=== PATIENT | female | born 1995 | race Caucasian/White ===

== ENCOUNTER 2021-08-04 19:16 | Emergency (ER) | payer SELFPAY ==
[~2021-08-04] VITALS: Ht 154.9 cm; Wt 79.5 kg
[2021-08-04] MEDS ORDERED: ZITHROMAX 250M250 MG PO (20:55)
[2021-08-04] MEDS ORDERED: PREDNISONE20 MG PO (20:55)
[2021-08-04 20:57] VITALS: BP 115/68; PULSE 76; TEMP 98.1
== END 2021-08-04 21:03 | disposition home or self-care (01) ==
LOC: COL.ER 19:16
DX: J45.909 Unspecified asthma, uncomplicated (principal); Z86.16 Personal history of COVID-19
CPT/HCPCS: J7512

== ENCOUNTER 2021-08-18 18:36 | Inpatient (IN) | payer SELFPAY ==
[~2021-08-18] VITALS: Ht 154.9 cm; Wt 86.0 kg
[~2021-08-18 18:36] MED LIST: PREDNISONE20 MG PO; ZITHROMAX 250M250 MG PO
[2021-08-18 19:44] LABS: HEMATOCRIT 42.6 % (37.0-47.0); HEMOGLOBIN 13.8 g/dl (12.5-16.0); MEAN CELL VOLUME 86 fl (80.0-100.0); MEAN CORPUSCULAR HEMOGLOBIN 28 pg (27-31); MEAN CORPUSCULAR HGB CONC 32 g/dl (33.0-37.0); MEAN PLATELET VOLUME 11.9 fl (7.4-10.4); PLATELET COUNT 151 K/mm3 (130-400); RED BLOOD COUNT 4.98 M/mm3 (4.10-5.30)
[2021-08-18 20:05] LABS: ALANINE AMINOTRANSFERASE 25 U/L (0-55); ALBUMIN 4.4 gm/dL (3.5-5.0); ALKALINE PHOSPHATASE 53 U/L (40-150); ANION GAP 10 mmol/L (7-16); AST,SGOT 16 U/L (5-34); BILIRUBIN,TOTAL 1.3 mg/dL (0.2-1.2); BLOOD UREA NITROGEN 24 mg/dL (7-19); CALCIUM 9.8 mg/dL (8.4-10.2); CARBON DIOXIDE 19 mmol/L (22-29); CHLORIDE 109 mmol/L (98-107); CREATININE, serum 0.72 mg/dL (0.57-1.11); GLUCOSE 91 mg/dL (70-99); POTASSIUM 4.2 mmol/L (3.5-4.5); SODIUM 138 mmol/L (136-145)
[2021-08-18 20:11] LABS: TROPONIN-I < 0.010 ng/mL (0.00-0.033)
[2021-08-18 20:31] LABS: BAND 5 % (0-10); BASOPHIL 1 % (0-2); EOSINOPHIL 2 % (0-4); LYMPHOCYTE 25 % (20.0-51.0); METAMYELOCYTE 1 % (0-0); MYELOCYTE 4 % (0-0); NEUTROPHILS 54 % (42.0-75.2)
[2021-08-18 20:32] LABS: HYPOCHROMIA 1+; PLATELET ESTIMATE NORMAL (NORMAL)
[2021-08-18] MEDS ORDERED: ABILIFY 10MG TA10 MG PO (21:27)
[2021-08-18] MEDS ORDERED: PROZAC 20MG20 MG PO (21:28)
[2021-08-18] MEDS ORDERED: TOPAMAX 100MG100 M1 PO (21:28)
[2021-08-18] MEDS ORDERED: DESYREL 50MG50 MG PO (21:29)
[2021-08-18] MEDS ORDERED: PROAIR HFA0.09 MG/AC IH (21:29)
[2021-08-18] MEDS ORDERED: NORVASC2.5 MG PO (21:29)
[2021-08-18] MEDS ORDERED: PRILOSEC 20MG20 MG PO (21:29)
[2021-08-18] MEDS ORDERED: RT ADVAIR 228 DISKUS IH (21:30)
[2021-08-18 23:00] VITALS: BP 120/72; PULSE 66; TEMP 98.1
--- NOTE | 2021-08-19 01:21 | NUR ---
PATIENT TO ROOM 348. ALERT AND ORIENTED. DENIES PAIN. C/O CHEST TIGHTNESS WHEN COUGHING. PT EDUCATION ON STOOL SAMPLE AND SPUTUM SAMPLE NEED, PT IS AGREEABLE. MED RX COMPLETED, ASSESSMENTS COMPLETED. NS INFUSING TO R AC IV. 2 L O2 VIA NC. REFUSED HS DOSE OF TRAZADONE.
[2021-08-19 04:39] VITALS: BP 104/66; PULSE 74; TEMP 97.8
[2021-08-19 06:42] LABS: BASO % 0.4 % (0.0-2.0); EOS % 0.2 % (0.0-4.0); GRAN # 4.9 K/mm3 (1.4-6.5); GRAN % 87.1 % (42.2-75.2); HEMATOCRIT 37.9 % (37.0-47.0); HEMOGLOBIN 12.6 g/dl (12.5-16.0); LYMPH # 0.5 K/mm3 (1.2-3.4); LYMPH % 9.6 % (20.0-51.0); MEAN CELL VOLUME 84 fl (80.0-100.0); MEAN CORPUSCULAR HEMOGLOBIN 28 pg (27-31); MEAN CORPUSCULAR HGB CONC 33 g/dl (33.0-37.0); MEAN PLATELET VOLUME 12.9 fl (7.4-10.4); MONO # 0.1 K/mm3 (0.1-0.6); MONO % 1.6 % (1.7-9.3); PLATELET COUNT 132 K/mm3 (130-400); RED BLOOD COUNT 4.52 M/mm3 (4.10-5.30); REDCELL DISTRIBUTION WIDTH-CV 16.2 % (11.5-14.5)
[2021-08-19 06:47] LABS: CALCIUM 8.8 mg/dL (8.4-10.2); CREATININE, serum 0.71 mg/dL (0.57-1.11); POTASSIUM 4.2 mmol/L (3.5-4.5)
[2021-08-19 07:40] VITALS: BP 122/69; PULSE 65; TEMP 97.8
--- NOTE | 2021-08-19 07:40 | NUR ---
assessment completed. pt complains of chest pressure after coughing. SOB on exertion. pt states some pain in LRE. No redness or swelling to touch noted. IV 18 R AC is CDI with NS, rate 100mL/HR. O2 at 95% on 2L NC. RT present at this time and gave tx. pt tolerated well and stated breathing better. Re-educated pt on sputum collection at bedside. Pt stated last BM was 2 and some present nausea. Call light left in reach.
--- NOTE | 2021-08-19 08:01 | NUR ---
Pt assessment complete. Pt is sitting up in bed upon entry, she is A/O x4. Her breathing is even and unlabored on 1L O2 via NC. Pt reports increased SOB on exertion. Continues to cough up phlegm. Has some chest tightness. No N/V. IVF infusing per orders. Call light within reach.
--- NOTE | 2021-08-19 09:45 | NUR ---
Checked in with pt. Sitting up in bed eating breakfast. Offered pt to shower after she completed meal. pt refused stated "No, I'd rather wait until later today." Call light left in reach.
[2021-08-19 11:00] VITALS: BP 121/66; PULSE 74; TEMP 97.8
--- NOTE | 2021-08-19 11:00 | NUR ---
Took 1100 VS. Pt completed 100% breakfast. Resting in bed. No current new complaints. Call light left in reach.
--- NOTE | 2021-08-19 11:48 | NUR ---
metal storage worker met with patient to discuss discharge plan. Patient reports that she lives in [place] at an apartment with a roommate (Courtney, ). Patient states that she is independent with his ADLS' and does not utilize and DME to assist with mobility. Patient has no oxyge needs at home. PCP is at [facility] in but cannot tell me what provider she see's and she utilizes [facility] in for perscriptions. Patient reports that she is not and does not have a DPOA-HC estbalished. Education provided and patient does not want her parents as her DPOA-HC. Form provided to patient instructions provided. Patient is planning on returning home once medically ready. Discharge plan: Home
[2021-08-19 16:05] VITALS: BP 123/67; PULSE 73; TEMP 98
--- NOTE | 2021-08-19 18:42 | NUR ---
Pt called over call light coughing loudly. Upon entry pt attempting to cough up phlegm. Oxygen sat 93% on RA at the time. ADMISSIONS SUPERVISOR at bedside and reported patient to be having a seizure. This nurse came to bedside, pt turned to side oxygen placed back on to patient and IV Ativan administered. While pt was having a "seizure" this nurse lifted her arm above her in which she kept in place above her head. When patient came back to she was able to state she was oriented to place and person. Pt then stating "what the hell happened". Telemetry reports no changes over tele over this period of time. Vitals attained at the time, BP 124/66, HR 75, O2 95% on 2L, temperature 97.4. Dr. Wagner notified of details that took place, orders for a nebulizer and tessalon pearles given. Seizure precautions in place.
[2021-08-19 20:15] VITALS: BP 105/55; PULSE 74; TEMP 18
--- NOTE | 2021-08-19 23:40 | NUR ---
Report received from day shift nurse. Patient is currently on seizure precautions. Patient had COVID-19 in July, and has had worsening SOA and coughing since. Full body assessment and medication administration completed without difficulty. Vital signs are WNL and patient complains of chest pain, describes it as "sharp". Evening meal was tolerated by the patient. Patient has no other complaints at this time. Call light within reach.
[2021-08-20 00:38] VITALS: BP 98/54; PULSE 62; TEMP 98
[2021-08-20 04:46] VITALS: BP 107/75; PULSE 68; TEMP 97.7
--- NOTE | 2021-08-20 05:35 | NUR ---
Patient is here due to SOA and seizures. Seizure precautions are in place as well as telemetry. Patient has had a quiet night and is currently resting in bed. No complaints or needs at this time. Call light within reach.
[2021-08-20 07:00] VITALS: BP 127/65; PULSE 71; TEMP 97.8
--- NOTE | 2021-08-20 07:15 | NUR ---
Assessment completed. 18 R AC IFV NS infused at 100mL/HR. Site CDI, wrapped. O2 at 95% on 2L oxymask. Pt complains of chest pain at rest and while coughing. Complains of pain/tenderness to touch on LLE. no redness/warmth. nurse notified of pain.pt wearings SCDs. Completed 100% breakfast and now laying in bed resting with call ligh in reach.
--- NOTE | 2021-08-20 09:26 | NUR ---
Patient resting in bed. Seems sleepy. Vss on room air. Reports she did well with breakfast. Denies needs at this time.
--- NOTE | 2021-08-20 10:00 | NUR ---
Several visit attempts; Risk Management Intern left "Prayer Card" for patient offering God's blessings.
[2021-08-20 10:54] VITALS: BP 119/69; PULSE 71
--- NOTE | 2021-08-20 10:55 | NUR ---
pt called vomitting and SOB. pt was not wearing oxymax. took VS. VS WNL. O2 was 93%. put oxymask on pt at 2L/min. instructed to deep breath. Pt has visitor in room. presented fine until visitor present. Left call light in reach. notified nurse.
[2021-08-20 15:47] VITALS: BP 115/61; PULSE 64; TEMP 98.3
--- NOTE | 2021-08-20 17:00 | NUR ---
Patient stand by assist to sit in chair for dinner. Patient bed linens changed. Offered oral hygiene, she reports maybe tonight. Reports a shower would be too taxing. We discussed importance of hygiene and activity to prevent pnemonia. She continues to have pain with her cough, prn medications given. Will monitor
--- NOTE | 2021-08-20 19:15 | NUR ---
Bedside report to Estelle Aquino
[2021-08-20 20:09] VITALS: BP 101/54; PULSE 71; TEMP 97.8
[2021-08-21 00:09] VITALS: BP 134/78; PULSE 78; TEMP 97.9
--- NOTE | 2021-08-21 01:56 | NUR ---
PATIENT DOING WELL TONIGHT. ALERT AND ORIENTED. VERY TIRED AND RESTING IN BED. C/O COUGH AND PRN TESSALON PERLES GIVEN. IVF TO R AC. DENIES NAUSEA AT THIS TIME.
[2021-08-21 04:16] VITALS: BP 120/79; PULSE 59; TEMP 97.4
[2021-08-21 06:26] LABS: HEMATOCRIT 38.8 % (37.0-47.0); HEMOGLOBIN 12.3 g/dl (12.5-16.0); MEAN CELL VOLUME 88 fl (80.0-100.0); MEAN CORPUSCULAR HEMOGLOBIN 28 pg (27-31); MEAN CORPUSCULAR HGB CONC 32 g/dl (33.0-37.0); PLATELET COUNT 78 K/mm3 (130-400); RED BLOOD COUNT 4.42 M/mm3 (4.10-5.30); REDCELL DISTRIBUTION WIDTH-CV 16.9 % (11.5-14.5)
[2021-08-21 06:43] LABS: CALCIUM 8.8 mg/dL (8.4-10.2); CREATININE, serum 0.71 mg/dL (0.57-1.11); POTASSIUM 3.9 mmol/L (3.5-4.5)
[2021-08-21 07:12] VITALS: BP 114/68; PULSE 59; TEMP 97.5
[2021-08-21 07:35] LABS: GRAN % 59.4 % (42.2-75.2); LYMPH % 28.1 % (20.0-51.0); MONO % 10.3 % (1.7-9.3)
[2021-08-21 07:36] LABS: BASO % 0.4 % (0.0-2.0); EOS # 0.1 K/mm3 (0.0-0.7); LYMPH # 1.4 K/mm3 (1.2-3.4); MONO # 0.5 K/mm3 (0.1-0.6)
[2021-08-21 09:55] VITALS: BP 107/65; PULSE 74; TEMP 97.8
--- NOTE | 2021-08-21 10:27 | NUR ---
PT HAD ANOTHER "PSEUDOSEZIURE" VSS TAKENAND FOUND TO BE STABLE. PT'S ROOMMATE REPORTS THAT THESE EPISODES OCCUR MORE FREQUENTLY WHEN PT IS STRESSED.
[2021-08-21 11:29] VITALS: BP 110/57; PULSE 69; TEMP 97.3
[2021-08-21] MEDS ORDERED: PREDNISONE20 MG PO (11:56)
--- NOTE | 2021-08-21 14:01 | NUR ---
REVIEWED DISCHARGE INSTRUCTIONS WITH PT. PT VERBALIZED UNDERSTANDING. PT LEFT PER WHEEL CHAIR WITH STAFF.
== END 2021-08-21 14:03 | disposition home or self-care (01) | DRG 189 ==
LOC: COL.ER 18:36 → SURG 21:13
PROVIDERS: Emergency Medicine; Nurse Practitioner Family; Physician Assistant; ADMIT Internal Medicine
DX: J96.01 Acute respiratory failure with hypoxia (principal); J45.901 Unspecified asthma with (acute) exacerbation; F32.A Depression, unspecified; F41.9 Anxiety disorder, unspecified; M19.90 Unspecified osteoarthritis, unspecified site; D69.6 Thrombocytopenia, unspecified; G89.29 Other chronic pain; R07.89 Other chest pain; R56.9 Unspecified convulsions; Z79.52 Long term (current) use of systemic steroids; B94.8 Sequelae of other specified infectious and parasitic diseases
CPT/HCPCS: 99222-AI; 99232-AI; 99233-AI; 99239; J0696; J1100; J2060; J7030; J8540; Q9967

== ENCOUNTER 2021-09-21 05:10 | Emergency (ER) | payer SELFPAY ==
[~2021-09-21 05:10] MED LIST changes: +ABILIFY 10MG TA10 MG PO; +DESYREL 50MG50 MG PO; +NORVASC2.5 MG PO; +PRILOSEC 20MG20 MG PO; +PROAIR HFA0.09 MG/AC IH; +PROZAC 20MG20 MG PO; +RT ADVAIR 228 DISKUS IH; +TOPAMAX 100MG100 M1 PO
[2021-09-21 05:12] VITALS: TEMP 98.5
[2021-09-21] MEDS ORDERED: PREDNISONE20 MG PO (06:14)
[2021-09-21] MEDS ORDERED: ZITHROMAX 250M250 MG PO (06:14)
[2021-09-21 07:13] VITALS: BP 117/79; PULSE 61
== END 2021-09-21 07:13 | disposition home or self-care (01) ==
LOC: COL.ER 05:10
DX: J45.901 Unspecified asthma with (acute) exacerbation (principal); Z86.16 Personal history of COVID-19
CPT/HCPCS: J7512

== ENCOUNTER 2021-09-29 21:38 | Emergency (ER) | payer SELFPAY ==
[~2021-09-29] VITALS: Ht 154.9 cm; Wt 90.9 kg
[2021-09-29 21:39] VITALS: TEMP 98.3
[2021-09-29 22:43] LABS: BASO % 0.5 % (0.0-2.0); EOS # 0.1 K/mm3 (0.0-0.7); GRAN # 3.4 K/mm3 (1.4-6.5); GRAN % 60.1 % (42.2-75.2); HEMATOCRIT 42.3 % (37.0-47.0); HEMOGLOBIN 13.3 g/dl (12.5-16.0); LYMPH # 1.4 K/mm3 (1.2-3.4); LYMPH % 25.6 % (20.0-51.0); MEAN CELL VOLUME 89 fl (80.0-100.0); MEAN CORPUSCULAR HEMOGLOBIN 28 pg (27-31); MEAN CORPUSCULAR HGB CONC 31 g/dl (33.0-37.0); MEAN PLATELET VOLUME 12.3 fl (7.4-10.4); MONO # 0.6 K/mm3 (0.1-0.6); MONO % 11.3 % (1.7-9.3); PLATELET COUNT 121 K/mm3 (130-400); RED BLOOD COUNT 4.73 M/mm3 (4.10-5.30); REDCELL DISTRIBUTION WIDTH-CV 14.6 % (11.5-14.5)
[2021-09-29 23:00] LABS: ALBUMIN 4.2 gm/dL (3.5-5.0); BILIRUBIN,TOTAL 1.1 mg/dL (0.2-1.2); CALCIUM 9.2 mg/dL (8.4-10.2); CREATININE, serum 0.76 mg/dL (0.57-1.11); POTASSIUM 4.1 mmol/L (3.5-4.5); TOTAL PROTEIN 7.4 gm/dL (6.2-8.1)
[2021-09-29 23:20] LABS: PROLACTIN 19.3 ng/mL (5.18-26.53)
[2021-09-29] MEDS ORDERED: TOPAMAX 100MG100 M1 PO (23:32)
[2021-09-29 23:38] VITALS: BP 133/107; PULSE 55
== END 2021-09-29 23:38 | disposition home or self-care (01) ==
LOC: COL.ER 21:38
PROVIDERS: Nurse Practitioner
DX: R56.9 Unspecified convulsions (principal); Z86.16 Personal history of COVID-19; Z91.040 Latex allergy status; Z91.19 Patient's noncompliance with other medical treatment and regimen

== ENCOUNTER 2021-10-04 09:38 | Emergency (ER) | payer SELFPAY ==
[~2021-10-04] VITALS: Ht 154.9 cm; Wt 90.9 kg
[2021-10-04 09:40] VITALS: TEMP 98.3
[2021-10-04 10:37] VITALS: BP 146/83; PULSE 83
== END 2021-10-04 10:37 | disposition home or self-care (01) ==
LOC: COL.ER 09:38
DX: R06.02 Shortness of breath (principal); Z86.16 Personal history of COVID-19

== ENCOUNTER 2021-10-11 19:10 | Emergency (ER) | payer SELFPAY ==
[2021-10-11 19:38] VITALS: TEMP 97.9
[2021-10-11 19:43] LABS: BASO % 0.7 % (0.0-2.0); EOS # 0.2 K/mm3 (0.0-0.7); EOS % 3.2 % (0.0-4.0); GRAN # 3.1 K/mm3 (1.4-6.5); GRAN % 56.4 % (42.2-75.2); HEMATOCRIT 41.1 % (37.0-47.0); HEMOGLOBIN 13.7 g/dl (12.5-16.0); LYMPH # 1.5 K/mm3 (1.2-3.4); LYMPH % 27.6 % (20.0-51.0); MEAN CELL VOLUME 84 fl (80.0-100.0); MEAN CORPUSCULAR HEMOGLOBIN 28 pg (27-31); MEAN CORPUSCULAR HGB CONC 33 g/dl (33.0-37.0); MEAN PLATELET VOLUME 11.9 fl (7.4-10.4); MONO # 0.6 K/mm3 (0.1-0.6); MONO % 11.6 % (1.7-9.3); PLATELET COUNT 162 K/mm3 (130-400); RED BLOOD COUNT 4.92 M/mm3 (4.10-5.30); REDCELL DISTRIBUTION WIDTH-CV 14.3 % (11.5-14.5)
[2021-10-11 19:47] LABS: COLLECTION METHOD CLEAN CATCH
[2021-10-11 19:54] LABS: PH 6 (5-8); SQUAMOUS EPITHELIAL 0-2 /hpf (0-10); URINE APPEARANCE Hazy (CLEAR/HAZY); URINE BACTERIA Rare /hpf (NONE SEEN); URINE BILIRUBIN Negative (NEGATIVE); URINE BLOOD Negative (NEGATIVE); URINE COLOR Yellow (YELLOW); URINE GLUCOSE Negative (NEGATIVE); URINE KETONE Negative (NEGATIVE); URINE LEUKOCYTE ESTERASE Trace (NEGATIVE); URINE NITRATE Negative (NEGATIVE); URINE PROTEIN(semi-quant) Negative (NEGATIVE); URINE RBC 0-2 /hpf (0-2)
[2021-10-11 20:00] LABS: ALANINE AMINOTRANSFERASE 15 U/L (0-55); ALBUMIN 4.3 gm/dL (3.5-5.0); ALKALINE PHOSPHATASE 66 U/L (40-150); ANION GAP 10 mmol/L (7-16); AST,SGOT 14 U/L (5-34); BILIRUBIN,TOTAL 1.5 mg/dL (0.2-1.2); BLOOD UREA NITROGEN 19 mg/dL (7-19); CALCIUM 9.2 mg/dL (8.4-10.2); CARBON DIOXIDE 18 mmol/L (22-29); CHLORIDE 113 mmol/L (98-107); CREATININE, serum 0.78 mg/dL (0.57-1.11); GLUCOSE 106 mg/dL (70-99); SODIUM 141 mmol/L (136-145); TOTAL PROTEIN 7.7 gm/dL (6.2-8.1)
[2021-10-11 20:01] LABS: ALCOHOL(ethanol),MEDICAL < 10 mg/dL (0-10)
[2021-10-11 21:22] VITALS: BP 118/76; PULSE 76
== END 2021-10-11 21:22 | disposition home or self-care (01) ==
LOC: COL.ER 19:10
PROVIDERS: Physician Assistant
DX: R56.9 Unspecified convulsions (principal); J45.909 Unspecified asthma, uncomplicated; Z91.040 Latex allergy status; Z79.899 Other long term (current) drug therapy
CPT/HCPCS: J1885; J1953; J2405; J7030

== ENCOUNTER 2021-10-17 08:40 | Emergency (ER) | payer SELFPAY ==
[~2021-10-17] VITALS: Ht 154.9 cm; Wt 94.5 kg
[2021-10-17 08:46] VITALS: TEMP 98.5
[2021-10-17 10:39] VITALS: BP 123/71; PULSE 57
== END 2021-10-17 10:39 | disposition home or self-care (01) ==
LOC: COL.ER 08:40
DX: S06.0X9A Concussion with loss of consciousness of unspecified duration, initial encounter (principal); I10 Essential (primary) hypertension; Z86.16 Personal history of COVID-19; Z91.040 Latex allergy status; W18.09XA Striking against other object with subsequent fall, initial encounter; Y92.59 Other trade areas as the place of occurrence of the external cause; Y99.0 Civilian activity done for income or pay

== ENCOUNTER 2021-11-04 19:28 | Emergency (ER) | payer SELFPAY ==
[~2021-11-04] VITALS: Ht 154.9 cm; Wt 90.9 kg
[2021-11-04 19:30] VITALS: TEMP 98.1
[2021-11-04 20:39] LABS: BASO % 0.5 % (0.0-2.0); EOS # 0.1 K/mm3 (0.0-0.7); EOS % 2.2 % (0.0-4.0); GRAN # 3.5 K/mm3 (1.4-6.5); GRAN % 62.8 % (42.2-75.2); HEMATOCRIT 38.9 % (37.0-47.0); LYMPH # 1.2 K/mm3 (1.2-3.4); LYMPH % 22.5 % (20.0-51.0); MEAN CELL VOLUME 84 fl (80.0-100.0); MEAN CORPUSCULAR HEMOGLOBIN 28 pg (27-31); MEAN CORPUSCULAR HGB CONC 33 g/dl (33.0-37.0); MEAN PLATELET VOLUME 12.3 fl (7.4-10.4); MONO # 0.6 K/mm3 (0.1-0.6); MONO % 11.5 % (1.7-9.3); PLATELET COUNT 125 K/mm3 (130-400); RED BLOOD COUNT 4.61 M/mm3 (4.10-5.30); REDCELL DISTRIBUTION WIDTH-CV 13.9 % (11.5-14.5)
[2021-11-04 20:57] LABS: ALANINE AMINOTRANSFERASE 14 U/L (0-55); ALBUMIN 4.1 gm/dL (3.5-5.0); ALKALINE PHOSPHATASE 60 U/L (40-150); ANION GAP 8 mmol/L (7-16); AST,SGOT 14 U/L (5-34); BILIRUBIN,TOTAL 1.2 mg/dL (0.2-1.2); BLOOD UREA NITROGEN 14 mg/dL (7-19); C-REACTIVE PROTEIN 0.12 mg/dL (0.00-0.50); CALCIUM 8.8 mg/dL (8.4-10.2); CARBON DIOXIDE 18 mmol/L (22-29); CHLORIDE 115 mmol/L (98-107); CREATININE, serum 0.66 mg/dL (0.57-1.11); GLUCOSE 93 mg/dL (70-99); POTASSIUM 3.7 mmol/L (3.5-4.5); SODIUM 141 mmol/L (136-145); TOTAL PROTEIN 6.9 gm/dL (6.2-8.1)
[2021-11-04 21:15] LABS: TROPONIN-I < 0.010 ng/mL (0.00-0.033)
[2021-11-04 23:11] VITALS: BP 126/77; PULSE 84
== END 2021-11-04 23:11 | disposition home or self-care (01) ==
LOC: COL.ER 19:28
PROVIDERS: Nurse Practitioner
DX: R07.9 Chest pain, unspecified (principal); Z98.890 Other specified postprocedural states; Z86.16 Personal history of COVID-19; Z28.311 Partially vaccinated for COVID-19; Z91.040 Latex allergy status

== ENCOUNTER 2021-11-15 16:08 | Emergency (ER) | payer SELFPAY ==
[~2021-11-15] VITALS: Ht 154.9 cm; Wt 90.9 kg
[2021-11-15 16:10] VITALS: TEMP 97.3
[2021-11-15 16:32] LABS: BASO % 0.6 % (0.0-2.0); EOS # 0.1 K/mm3 (0.0-0.7); EOS % 2.6 % (0.0-4.0); GRAN # 2.9 K/mm3 (1.4-6.5); GRAN % 62.2 % (42.2-75.2); HEMATOCRIT 41.1 % (37.0-47.0); HEMOGLOBIN 13.7 g/dl (12.5-16.0); LYMPH # 1.2 K/mm3 (1.2-3.4); LYMPH % 25.9 % (20.0-51.0); MEAN CELL VOLUME 84 fl (80.0-100.0); MEAN CORPUSCULAR HEMOGLOBIN 28 pg (27-31); MEAN CORPUSCULAR HGB CONC 33 g/dl (33.0-37.0); MEAN PLATELET VOLUME 11.9 fl (7.4-10.4); MONO # 0.4 K/mm3 (0.1-0.6); MONO % 8.5 % (1.7-9.3); PLATELET COUNT 159 K/mm3 (130-400); REDCELL DISTRIBUTION WIDTH-CV 13.8 % (11.5-14.5)
[2021-11-15 16:40] LABS: COLLECTION METHOD CLEAN CATCH
[2021-11-15 16:48] LABS: MUCOUS Present (NOT PRESENT); PH 5 (5-8); URINE APPEARANCE Hazy (CLEAR/HAZY); URINE BACTERIA None Seen /hpf (NONE SEEN); URINE BILIRUBIN Negative (NEGATIVE); URINE BLOOD Negative (NEGATIVE); URINE COLOR Yellow (YELLOW); URINE GLUCOSE Negative (NEGATIVE); URINE KETONE Negative (NEGATIVE); URINE LEUKOCYTE ESTERASE Negative (NEGATIVE); URINE NITRATE Negative (NEGATIVE); URINE PROTEIN(semi-quant) 1+ (NEGATIVE); URINE RBC 0-2 /hpf (0-2); URINE UROBILINOGEN Negative (NEGATIVE)
[2021-11-15 16:50] LABS: ALBUMIN 4.2 gm/dL (3.5-5.0); BILIRUBIN,TOTAL 1.3 mg/dL (0.2-1.2); C-REACTIVE PROTEIN 0.1 mg/dL (0.00-0.50); CALCIUM 8.8 mg/dL (8.4-10.2); CREATININE, serum 0.71 mg/dL (0.57-1.11); POTASSIUM 3.8 mmol/L (3.5-4.5); TOTAL PROTEIN 7.6 gm/dL (6.2-8.1)
[2021-11-15] MEDS ORDERED: ZOFRAN ODT4 MG PO (18:38)
[2021-11-15 18:46] VITALS: BP 123/80; PULSE 52
== END 2021-11-15 18:46 | disposition home or self-care (01) ==
LOC: COL.ER 16:08
PROVIDERS: Physician Assistant
DX: R16.2 Hepatomegaly with splenomegaly, not elsewhere classified (principal); R10.11 Right upper quadrant pain; R10.31 Right lower quadrant pain; R11.2 Nausea with vomiting, unspecified; Z87.19 Personal history of other diseases of the digestive system; Z86.16 Personal history of COVID-19; Z91.040 Latex allergy status
CPT/HCPCS: J1885; J2405; Q9967

== ENCOUNTER 2021-12-03 08:16 | Emergency (ER) | payer SELFPAY ==
[~2021-12-03] VITALS: Ht 154.9 cm; Wt 90.9 kg
[~2021-12-03 08:16] MED LIST changes: +ZOFRAN ODT4 MG PO
[2021-12-03 08:17] VITALS: TEMP 97.4
[2021-12-03 08:49] LABS: BASO % 0.9 % (0.0-2.0); EOS # 0.1 K/mm3 (0.0-0.7); EOS % 2.6 % (0.0-4.0); GRAN # 2.1 K/mm3 (1.4-6.5); GRAN % 60.1 % (42.2-75.2); HEMATOCRIT 39.4 % (37.0-47.0); HEMOGLOBIN 12.9 g/dl (12.5-16.0); LYMPH # 0.9 K/mm3 (1.2-3.4); LYMPH % 26.1 % (20.0-51.0); MEAN CELL VOLUME 85 fl (80.0-100.0); MEAN CORPUSCULAR HEMOGLOBIN 28 pg (27-31); MEAN CORPUSCULAR HGB CONC 33 g/dl (33.0-37.0); MEAN PLATELET VOLUME 12.5 fl (7.4-10.4); MONO # 0.3 K/mm3 (0.1-0.6); PLATELET COUNT 91 K/mm3 (130-400); RED BLOOD COUNT 4.62 M/mm3 (4.10-5.30); REDCELL DISTRIBUTION WIDTH-CV 13.9 % (11.5-14.5)
[2021-12-03 09:06] LABS: ALBUMIN 4.2 gm/dL (3.5-5.0); BILIRUBIN,TOTAL 1.3 mg/dL (0.2-1.2); CALCIUM 9.2 mg/dL (8.4-10.2); CREATININE, serum 0.65 mg/dL (0.57-1.11); TOTAL PROTEIN 7.1 gm/dL (6.2-8.1)
[2021-12-03 09:19] VITALS: BP 120/79; PULSE 61
== END 2021-12-03 09:20 | disposition home or self-care (01) ==
LOC: COL.ER 08:16
PROVIDERS: Emergency Medicine
DX: R56.9 Unspecified convulsions (principal); Z86.16 Personal history of COVID-19; Z91.040 Latex allergy status

== ENCOUNTER 2021-12-18 20:56 | Emergency (ER) | payer SELFPAY ==
[~2021-12-18] VITALS: Ht 160 cm; Wt 75.0 kg
[2021-12-18 23:26] LABS: BASO % 0.5 % (0.0-2.0); EOS # 0.1 K/mm3 (0.0-0.7); EOS % 2.3 % (0.0-4.0); GRAN # 3.6 K/mm3 (1.4-6.5); HEMATOCRIT 42.7 % (37.0-47.0); HEMOGLOBIN 14.3 g/dl (12.5-16.0); LYMPH # 1.4 K/mm3 (1.2-3.4); LYMPH % 24.1 % (20.0-51.0); MEAN CELL VOLUME 84 fl (80.0-100.0); MEAN CORPUSCULAR HEMOGLOBIN 28 pg (27-31); MEAN CORPUSCULAR HGB CONC 34 g/dl (33.0-37.0); MONO # 0.6 K/mm3 (0.1-0.6); MONO % 9.7 % (1.7-9.3); PLATELET COUNT 140 K/mm3 (130-400); RED BLOOD COUNT 5.07 M/mm3 (4.10-5.30); REDCELL DISTRIBUTION WIDTH-CV 13.7 % (11.5-14.5)
[2021-12-18 23:42] LABS: ALANINE AMINOTRANSFERASE 17 U/L (0-55); ALBUMIN 4.2 gm/dL (3.5-5.0); ALKALINE PHOSPHATASE 61 U/L (40-150); ANION GAP 11 mmol/L (7-16); AST,SGOT 15 U/L (5-34); BILIRUBIN,TOTAL 1.5 mg/dL (0.2-1.2); BLOOD UREA NITROGEN 28 mg/dL (7-19); CALCIUM 9.4 mg/dL (8.4-10.2); CARBON DIOXIDE 18 mmol/L (22-29); CHLORIDE 111 mmol/L (98-107); CREATININE, serum 0.71 mg/dL (0.57-1.11); GLUCOSE 95 mg/dL (70-99); POTASSIUM 3.9 mmol/L (3.5-4.5); SODIUM 140 mmol/L (136-145); TOTAL PROTEIN 7.9 gm/dL (6.2-8.1)
[2021-12-18 23:49] LABS: TROPONIN-I < 0.010 ng/mL (0.00-0.033)
[2021-12-19 00:25] VITALS: BP 104/67; PULSE 60; TEMP 98.4
== END 2021-12-19 00:25 | disposition home or self-care (01) ==
LOC: COL.ER 20:56
PROVIDERS: Physician Assistant
DX: R07.89 Other chest pain (principal); Z91.040 Latex allergy status; Z86.16 Personal history of COVID-19; Z28.311 Partially vaccinated for COVID-19; Z98.890 Other specified postprocedural states